=== PATIENT | female | born 1955 | race Caucasian/White ===

== ENCOUNTER 2021-09-03 09:10 | Day surgery (SDC) | payer MEDICARE, OTHER ==
[2021-08-29 15:17] LABS: BASOPHILS % (AUTO) 0.8 % (0-1); EOSINOPHILS # (AUTO) 0.1 X10'3 (0-0.9); EOSINOPHILS % (AUTO) 2.3 % (0-6); HEMATOCRIT 39.4 % (35.0-45.0); HEMOGLOBIN 13.1 g/dl (12.0-16.0); LYMPHOCYTES # (AUTO) 2.1 X10'3 (1.1-4.8); LYMPHOCYTES % (AUTO) 37.1 % (21-51); MEAN CORPUSCULAR HEMOGLOBIN 31.4 PG (27.0-31.0); MEAN CORPUSCULAR HGB CONC 33.2 g/dL (33.0-36.5); MEAN CORPUSCULAR VOLUME 94.5 FL (78-98); MEAN PLATELET VOLUME 7.4 FL (7.4-10.4); MONOCYTES # (AUTO) 0.5 X10'3 (0-0.9); MONOCYTES % (AUTO) 9.3 % (2-12); NEUTROPHILS # (AUTO) 2.9 X10'3 (1.8-7.7); NEUTROPHILS % (AUTO) 50.5 % (42-75); PLATELET COUNT 229 X10'3 (140-440); RED BLOOD COUNT 4.17 X10'6 (4.20-5.60); RED CELL DISTRIBUTION WIDTH 13.6 % (11.5-14.5); WHITE BLOOD COUNT 5.7 X10'3 (4.5-11.0)
[2021-08-29 15:23] LABS: APTT 26 SECONDS (22-32)
[2021-08-29 15:31] LABS: ALANINE AMINOTRANSFERASE 21 U/L (12-78); ALBUMIN 3.9 G/DL (3.4-5.0); ALBUMIN/GLOBULIN RATIO 1.5 (1.1-1.5); ALKALINE PHOSPHATASE 58 IU/L (46-116); ANION GAP 4 (8-16); ASPARTATE AMINO TRANSFERASE 13 U/L (10-37); BILIRUBIN,TOTAL 0.2 MG/DL (0.1-1.0); BLOOD UREA NITROGEN 23 MG/DL (7-18); BUN/CREATININE RATIO 37.7 (6.6-38.0); CALCIUM 9.3 MG/DL (8.5-10.1); CHLORIDE 105 MMOL/L (99-107); CREATININE 0.61 MG/DL (0.40-0.90); GLUCOSE 86 MG/DL (70-104); POTASSIUM 4.1 MMOL/L (3.5-5.1); SODIUM 140 MMOL/L (135-145); TOTAL CARBON DIOXIDE 30.9 MMOL/L (24-32); TOTAL PROTEIN 6.5 G/DL (6.4-8.2); eGFR > 90 ML/MIN
[~2021-09-03] VITALS: Ht 172.7 cm; Wt 66.2 kg
[2021-09-03] VITALS (12 sets, daily range): BP systolic 99–177; BP diastolic 70–104
[2021-09-03] MEDS ORDERED: LORazepam 0.5 MG tablet PO PRN (09:35)
[2021-09-03] MEDS ORDERED: normal saline 1,000 ML IV SCH (09:35)
[2021-09-03] MEDS ORDERED: nitroGLYCERIN 0.4mg SUBLingual tab SL PRN (09:35)
[2021-09-03] MEDS ORDERED: diphenhydrAMINE 25mg capsule PO PRN (09:35)
[2021-09-03] MEDS ORDERED: ASPI-1265 PO (09:40)
[2021-09-03] MEDS ORDERED: LEVO100T PO (09:46)
[2021-09-03] MEDS ORDERED: RIZA10TA27 PO (09:46)
[2021-09-03] MEDS ORDERED: LOP25T PO (09:46)
[2021-09-03] MEDS ORDERED: iohexol 350MG/ML 100ml bottle IV ONE (10:04)
[2021-09-03] MEDS ORDERED: midazolam 1 mg/ML 2ml injection ONE (10:04)
[2021-09-03] MEDS ORDERED: LIDOcaine 1% (10mg/ml)w/preservative injection 20ml MDV ONE (10:04)
[2021-09-03] MEDS ORDERED: iohexol 350 MG/ML 50ML vial IV ONE (10:04)
[2021-09-03] MEDS ORDERED: fentaNYL/PF 50MCG/1 ML 2ML syringe ONE (10:04)
[2021-09-03] MEDS ORDERED: normal saline 1000ml 1,000 ML IV SCH (11:40)
[2021-09-03] MEDS ORDERED: HYDROcodone/acetaminophen 5mg/325mg tablet PO PRN (11:40)
[2021-09-03] MEDS ORDERED: ondansetron/PF 4mg/2ml inj IV PRN (11:40)
[2021-09-03] MEDS ORDERED: proCHLORperazine 10 MG/2 ml inj IV PRN (11:40)
[2021-09-03] MEDS ORDERED: HYDROcodone/acetaminophen 10/325mg tab PO PRN (11:40)
[2021-09-03] MEDS ORDERED: OXAZEpam 15mg capsule PO PRN (11:40)
== END 2021-09-03 17:20 | disposition home or self-care (01) ==
LOC: SSTAY O 09:10
PROVIDERS: ATTEND Internal Medicine Cardiovascular Disease
DX: R94.39 Abnormal result of other cardiovascular function study (principal); I10 Essential (primary) hypertension; E78.5 Hyperlipidemia, unspecified; E03.9 Hypothyroidism, unspecified; Z87.891 Personal history of nicotine dependence; Z79.82 Long term (current) use of aspirin; Z79.899 Other long term (current) drug therapy; Z79.01 Long term (current) use of anticoagulants; Z88.8 Allergy status to other drugs, medicaments and biological substances
CPT/HCPCS: 36415; 71046; 80053; 85025; 85610; 85730; 93005; 93458; 99152; C1760; C1769; J0780; J1644; J2250; J2405; J3010; J3490; J7030; Q0163; Q9967; A4620; A6258